=== PATIENT | male | born 1990 | race Caucasian/White ===

== ENCOUNTER 2020-08-02 23:37 | Emergency (ER) | payer OTHER, SELFPAY ==
[2020-08-02 23:41] VITALS: BP 131/74; PULSE 84; RESP 16; TEMP 36.6; O2SAT 100
[2020-08-02] MEDS: PROPARACAINE 0.5% OPHTH SOL 1 DROPS EYE-RIGHT (23:49)
[2020-08-03] MEDS: FLUORESCEIN 1 MG STRIP EYE-BOTH
--- NOTE | 2020-08-03 00:11 | ED.GENADULT ---
HPI - General Adult General Chief complaint: Eye Problems Stated complaint: stick in eye, now swollen, work injury Time Seen by Provider: 08/02/20 23:42 Source: patient Mode of arrival: Ambulatory Limitations: no limitations History of Present Illness HPI narrative: 30-year-old male here for evaluation of injuries that he sustained when he poked himself in his right eye with a stick while working on trimming a push. The event occurred approximately 1 hour prior to arrival. He does not were glasses or contacts. Has never had p.r. K or LASIK. Has not tried anything for symptoms prior to arrival Related Data Previous Rx's Medication Instructions Recorded erythromycin 0.5 inch EYE-RIGHT TID 3 Days #3.5 08/03/20 gram Allergies Allergy/AdvReac Type Severity Reaction Status Date / Time Penicillins Allergy Verified 08/02/20 23:42 Review of Systems Constitutional Constitutional: Denies fever(s) and Denies headache(s) Eyes Eyes: Reports blurry vision (Right of the), Reports irritation (Right eye), Denies loss of vision, Reports eye pain (Right eye), Denies seeing flashes and Reports photophobia (Right eye) ENT Ears, Nose, Mouth, and Throat: Denies headache(s) Integumentary/Breasts Skin/Breast: Denies lesions and Denies rash Neurologic Neurologic: Denies headache(s) and Denies loss of vision Hematologic/Lymphatic Hematologic/Lymphatic: Denies easy bleeding and Denies easy bruising Patient History Medical History Healthy adult (Acute) Social History lives independently: Yes Exam Initial Vital Signs Initial Vital Signs: Vital Signs Temperature 97.9 F 08/02/20 23:41 Pulse Rate 84 08/02/20 23:41 Respiratory Rate 16 08/02/20 23:41 Blood Pressure 131/74 08/02/20 23:41 Pulse Oximetry 100 08/02/20 23:41 Const General: cooperative and comfortable Limitations: mental status not altered HENSD Head: normal to inspection and normocephalic Ears: hearing grossly normal bilaterally Nose: external nose normal Face and sinus: normal facial exam Eyes Eyelids: eyelids normal Sclera: sclerae normal Cornea: corneas abnormal on the right fluorescein used and abrasion Pupils: PERRL EOM: EOM intact bilaterally Other: No foreign body noted with inversion and eversion of the upper and lower eyelid Skin Lesions: no lesions Rashes: no rashes Extrem General: capillary refill normal Psych Appearance: grossly normal and well kempt Course Orders Ordered: Discontinued Medications Erythromycin (Erythromycin Ophth Oint) 1 applic EYE-RIGHT NOW ONE Stop: 08/02/20 23:45 Last Admin: 08/03/20 00:13 Dose: 1 applic Documented by: JANKI Fluorescein Sodium (Ful-Elyssa) 1 mg EYE-BOTH NOW ONE Stop: 08/02/20 23:44 Last Admin: 08/03/20 00:00 Dose: 1 mg Documented by: MARC Proparacaine HCl (Parcaine 0.5% Ophth Gema) 1 drops EYE-RIGHT NOW ONE Stop: 08/02/20 23:44 Last Admin: 08/02/20 23:49 Dose: 1 drop Documented by: CHIQUITA Vital Signs Vital signs: Vital Signs - 8 hr 08/02/20 23:41 Temperature 97.9 F Pulse Rate 84 Respiratory Rate 16 Blood Pressure 131/74 Pulse Oximetry 100 Medical Decision Making MDM Narrative Medical decision making narrative: Patient does have findings consistent with a corneal abrasion of the right eye. Fluorescein was used. No foreign body noted. Patient does not were contacts for classes. Will treat with erythromycin ointment. He was given return precautions and follow-up instructions. He expressed understanding and agreement. Discharge Plan Departure Patient Disposition: Home Clinical Impression: Corneal abrasion Qualifiers: Encounter type: initial encounter Laterality: right Qualified Code(s): S05.01XA - Injury of conjunctiva and corneal abrasion without foreign body, right eye, initial encounter Discharge Date/Time: 08/03/20 00:24 Instructions: DI for Corneal Abrasion Activity Restrictions/Additional Instructions: You can take Tylenol and/or ibuprofen for any discomfort. Use the erythromycin ointment as directed. Return to the emergency department for any new or worsening symptoms Prescriptions: New erythromycin 5 mg/gram (0.5 %) ointment 0.5 inch EYE-RIGHT TID 3 Days Qty: 3.5 RF: 0
[2020-08-03] MEDS: ERYTHROMYCIN OPHTH 1 GM OINT 1 APPLIC EYE-RIGHT (00:13)
== END 2020-08-03 00:24 | disposition home or self-care (01) ==
PROVIDERS: Emergency Provider Emergency Medicine
DX: S05.01XA Injury of conjunctiva and corneal abrasion without foreign body, right eye, initial encounter (principal); W22.8XXA Striking against or struck by other objects, initial encounter; Y99.0 Civilian activity done for income or pay
CPT/HCPCS: 99282

== ENCOUNTER 2021-06-07 22:18 | Emergency (ER) | payer SELFPAY ==
[2021-06-07 23:33] VITALS: BP 136/92; PULSE 67; RESP 16; TEMP 36.6; O2SAT 99
--- NOTE | 2021-06-08 01:27 | ED.ANIMALBIT ---
HPI - Animal Bite General Chief Complaint: Extremity Injury, Upper Stated Complaint: DOG BITES ON BODY Time Seen by Provider: 06/08/21 01:19 Source: patient Mode of arrival: Ambulatory History of Present Illness HPI narrative: Patient is a 31-year-old male who presents with dog bite to right forearm and hand along with all left wrist. He was walking his dog off leash his neighbor was doing the same the dog's went to say hello he went to get his dog when her pit bull bit him. He has small puncture wounds on right hand and wrist and 1 on the left as well. Both patients and dog's immunizations are up-to-date. He has no numbness tingling or weakness. Related Data Previous Rx's Medication Instructions Recorded amoxicillin 875 mg-potassium 1 tab PO Q12H #14 tab 06/08/21 clavulanate 125 mg tablet (Augmentin) Allergies Allergy/AdvReac Type Severity Reaction Status Date / Time Penicillins Allergy Verified 08/02/20 23:42 Review of Systems Review of Systems Narrative: GENERAL: Denies chills,fever HEENT: Denies throat pain RESPIRATORY: Denies dyspnea, cough, wheezing CARDIOVASCULAR: Denies chest pain, palpitations GASTROINTESTINAL: Denies nausea, vomiting MUSCULOSKELETAL: Denies extremity pain, injury SKIN: See HPI NEUROLOGIC: Denies weakness, dizziness, headache, numbness 8 point review of systems is negative except for those stated above and HPI Patient History Medical History (Updated 06/08/21 @ 01:36 by Laurita Collazo DO) Healthy adult Social History lives independently: Yes Smoking Status: Current every day smoker Smoking Status: Current every day smoker tobacco type: cigarettes alcohol intake frequency: holidays/special occasions only Substance Use Type: marijuana Exam Initial Vital Signs Initial Vital Signs: Vital Signs Temperature 97.9 F 06/07/21 23:33 Pulse Rate 67 06/07/21 23:33 Respiratory Rate 16 06/07/21 23:33 Blood Pressure 136/92 H 06/07/21 23:33 Pulse Oximetry 99 06/07/21 23:33 GENERAL: Well-appearing, well-nourished and in no acute distress. CARDIOVASCULAR: peripheral pulses in tact, cap refill <2 sec RESPIRATORY: No respiratory distress, speaks in full sentences without difficulty EXTREMITIES: Normal range of motion, no clubbing or edema. Neurovascularly intact Right thumb no pain over scaphoid full flexion extension rotation sensation between 1st and 2nd digit is intact Left upper extremity full flexion and extension superficial puncture wound noted NEUROLOGICAL: Cranial nerves II through XII grossly intact. Normal gait and speech. SKIN: 2 puncture wounds noted on her right wrist and forearm. 1 puncture wound noted on the left wrist. Course Orders Ordered: Discontinued Medications Amoxicillin/Clavulanate Potassium (Amoxicillin/Clav 875/125 Mg) 1 tab PO NOW ONE Stop: 06/08/21 01:40 Last Admin: 06/08/21 01:41 Dose: 1 tab Documented by: MIKE Vital Signs Vital signs: Vital Signs - 8 hr 06/07/21 23:33 06/08/21 01:56 Temperature 97.9 F Pulse Rate 67 60 Respiratory Rate 16 14 Blood Pressure 136/92 H 130/63 Pulse Oximetry 99 100 Discharge Plan Departure Patient Disposition: Home Clinical Impression: Dog bite Qualifiers: Encounter type: initial encounter Qualified Code(s): W54.0XXA - Bitten by dog, initial encounter Instructions: Animal Bites Activity Restrictions/Additional Instructions: *You have been diagnosed with dog bite *What to do: Expect to be sore. Wound should heal a keep them clean and dry with soap and water. He may apply antibiotic ointment on it 1-2 times daily. *Continue to take medications as directed Augmentin 875 mg twice a day for 7 days *Follow up with your primary care provider in 2-3 days *Return to ER if you should have increasing redness swelling pain numbness tingling weakness or any new, worsening or concerning symptoms Prescriptions: New amoxicillin-pot clavulanate [Augmentin] 875-125 mg tablet 1 tab PO Q12H Qty: 14 RF: 0
[2021-06-08] MEDS: AMOXICILLIN/CLAV 875/125 MG 1 TAB PO (01:41)
--- NOTE | 2021-06-08 01:55 | PC.NURSE ---
Had patient wash hands and wrists with soap and water. Dressed both wrists with telfa pads and kerlix. instructed wound care, pt able to state understanding.
[2021-06-08 01:56] VITALS: BP 130/63; PULSE 60; RESP 14; O2SAT 100
== END 2021-06-08 01:57 | disposition home or self-care (01) ==
PROVIDERS: Emergency Provider Emergency Medicine
DX: S41.151A Open bite of right upper arm, initial encounter (principal); W54.0XXA Bitten by dog, initial encounter
CPT/HCPCS: 99283